=== PATIENT | male | born 1950 | race African-American/Black ===

== ENCOUNTER 2020-04-25 22:57 | Inpatient (IN) | payer MEDICARE, MEDICAID ==
[~2020-04-25] VITALS: Ht 175.3 cm; Wt 82.1 kg
[~2020-04-25 22:57] MED LIST: ILOP2TAB2 PO
[2020-04-26 00:08] LABS: CHLORIDE 106 mEq/L (98-107)
[2020-04-26 00:13] LABS: BASOPHILS % 0.8 % (0.0-2.0); EOSINOPHILS % 3.4 % (0.0-5.0); HEMATOCRIT. 26.4 % (42.0-52.0); LYMPHOCYTES % 28.6 % (20.0-50.0); MEAN CORPUSCULAR HEMOGLOBIN 29.8 pg (28.0-32.0); MEAN CORPUSCULAR VOLUME 87.2 fL (80.0-94.0); MEAN PLATELET VOLUME 8.6 fl (7.4-10.4); MONOCYTES % 11.8 % (2.0-8.0); NEUTROPHILS % 55.4 % (40.0-76.0); PLATELET 366 x1000/uL (130-400); RED BLOOD CELL COUNT 3.03 mill/uL (4.7-6.1); RED CELL DISTRIBUTION WIDTH 14.5 % (11.6-14.6)
[2020-04-26 00:32] LABS: CLARITY URINE CLEAR (CLEAR); COLOR URINE YELLOW (YELLOW); KETONES URINE NEGATIVE (NEGATIVE); LEUKOCYTE ESTERASE URINE TRACE (NEGATIVE); NITRITE URINE NEGATIVE (NEGATIVE); OCCULT BLOOD URINE NEGATIVE (NEGATIVE); PH URINE 6.5 (4.5-8.0); PROTEIN URINE 1+ (NEGATIVE); SPECIFIC GRAVITY URINE 1.016 (1.005-1.030)
[2020-04-26] MEDS ORDERED: POTASSIUM CHLORIDE 20MEQ TABLET SR PO ONE (02:00)
[2020-04-26] MEDS ORDERED: ASPIRIN 325MG TABLET PO ONE (02:00)
[2020-04-26] MEDS ORDERED: ONDANSETRON HCL 4MG/2ML INJ IV PRN (08:15)
[2020-04-26] MEDS ORDERED: ACETAMINOPHEN 325MG TABLET PO PRN (08:15)
[2020-04-26 08:45] VITALS: BP 131/80
[2020-04-26 09:00] VITALS: BP 131/80
[2020-04-26] MEDS: ASPIRIN 81MG TABLET PO SCH (10:02)
[2020-04-26] MEDS: ENOXAPARIN 40MG/0.4ML SYR SUBCUT SCH (10:02)
[2020-04-26 12:00] VITALS: BP 124/63
[2020-04-26 12:58] LABS: TOTAL IRON BINDING CAPACITY 182 ug/dL (250-450)
[2020-04-26] MEDS ORDERED: PNEUMOCOCCAL 23-VAL P-SAC VAC 0.5 ML IM ONE (14:15)
[2020-04-26] MEDS ORDERED: INFLUENZA VACCINE 05/PF 0.5 ML VIAL IM ONE (14:30)
[2020-04-26 16:00] VITALS: BP 144/76
[2020-04-26 18:43] LABS: VITAMIN B12 SERUM 623 pg/mL (211-911)
[2020-04-26] MEDS ORDERED: HYDROCODONE/ACETAMINOPHEN 10/325MG TABLET PO PRN (18:45)
[2020-04-26] MEDS: HYDROCODONE/ACETAMINOPHEN 5/325MG TABLET PO PRN (18:46)
[2020-04-26 20:00] VITALS: BP 128/75
[2020-04-27] VITALS: BP_SYST 140; BP_SYST 142; BP_DIAS 79; BP_DIAS 82
[2020-04-27 04:00] VITALS: BP 147/82
[2020-04-27 06:54] LABS: CHLORIDE 107 mEq/L (98-107)
[2020-04-27 06:56] LABS: BASOPHILS % 0.8 % (0.0-2.0); EOSINOPHILS % 4.2 % (0.0-5.0); HEMATOCRIT. 26.8 % (42.0-52.0); HEMOGLOBIN. 9.3 g/dL (14.0-18.0); LYMPHOCYTES % 27.7 % (20.0-50.0); MEAN CORPUSCULAR HEMOGLOBIN 30.4 pg (28.0-32.0); MEAN CORPUSCULAR VOLUME 87.3 fL (80.0-94.0); MEAN PLATELET VOLUME 8.6 fl (7.4-10.4); NEUTROPHILS % 59.3 % (40.0-76.0); PLATELET 379 x1000/uL (130-400); RED BLOOD CELL COUNT 3.07 mill/uL (4.7-6.1); RED CELL DISTRIBUTION WIDTH 14.6 % (11.6-14.6)
[2020-04-27 08:00] VITALS: BP 152/87
[2020-04-27] MEDS ORDERED: POTASSIUM CHLORIDE 20MEQ TABLET SR PO SCH (08:15)
[2020-04-27] MEDS: ENOXAPARIN 40MG/0.4ML SYR SUBCUT SCH (08:29)
[2020-04-27] MEDS: ASPIRIN 81MG TABLET PO SCH (08:29)
[2020-04-27 12:00] VITALS: BP 146/70
[2020-04-27 16:00] VITALS: BP 153/74
[2020-04-27] MEDS: HYDROCODONE/ACETAMINOPHEN 5/325MG TABLET PO PRN (18:19)
[2020-04-27 20:00] VITALS: BP 145/75
[2020-04-28] VITALS: BP_SYST 146; BP_SYST 152; BP_SYST 157; BP_DIAS 101; BP_DIAS 73; BP_DIAS 89
[2020-04-28 04:00] VITALS: BP 163/79
[2020-04-28 08:00] VITALS: BP 161/98
[2020-04-28] MEDS: ENOXAPARIN 40MG/0.4ML SYR SUBCUT SCH (08:57)
[2020-04-28] MEDS: ASPIRIN 81MG TABLET PO SCH (08:57)
[2020-04-28] MEDS ORDERED: CLONIDINE 0.1MG TABLET PO PRN (09:00)
[2020-04-28 12:00] VITALS: BP 129/68
[2020-04-28] MEDS: RISPERIDONE 0.5MG TABLET PO SCH ×2 (12:19→16:50)
[2020-04-28 16:00] VITALS: BP 126/66
[2020-04-28 20:00] VITALS: BP 146/76
[2020-04-29] VITALS: BP 146/78
[2020-04-29 04:00] VITALS: BP 156/80
[2020-04-29 08:00] VITALS: BP 143/69
[2020-04-29] MEDS: RISPERIDONE 0.5MG TABLET PO SCH ×2 (09:32→17:25)
[2020-04-29] MEDS: ASPIRIN 81MG TABLET PO SCH (09:32)
[2020-04-29] MEDS: ENOXAPARIN 40MG/0.4ML SYR SUBCUT SCH (09:34)
[2020-04-29 12:00] VITALS: BP 153/76
[2020-04-29 16:00] VITALS: BP 148/80
[2020-04-29 20:00] VITALS: BP 138/75
[2020-04-30] VITALS: BP 155/79
[2020-04-30 04:00] VITALS: BP 152/68
[2020-04-30 08:00] VITALS: BP 160/90
[2020-04-30] MEDS: ASPIRIN 81MG TABLET PO SCH (09:14)
[2020-04-30] MEDS: RISPERIDONE 0.5MG TABLET PO SCH ×2 (09:14→17:05)
[2020-04-30] MEDS: ENOXAPARIN 40MG/0.4ML SYR SUBCUT SCH (09:16)
[2020-04-30 11:31] LABS: BASOPHILS % 0.7 % (0.0-2.0); EOSINOPHILS % 1.9 % (0.0-5.0); HEMATOCRIT. 28.7 % (42.0-52.0); HEMOGLOBIN. 9.8 g/dL (14.0-18.0); LYMPHOCYTES % 17.6 % (20.0-50.0); MEAN CORPUSCULAR HEMOGLOBIN 30.2 pg (28.0-32.0); MEAN CORPUSCULAR VOLUME 88.4 fL (80.0-94.0); MEAN PLATELET VOLUME 8.4 fl (7.4-10.4); MONOCYTES % 7.2 % (2.0-8.0); NEUTROPHILS % 72.6 % (40.0-76.0); PLATELET 455 x1000/uL (130-400); RED BLOOD CELL COUNT 3.24 mill/uL (4.7-6.1)
[2020-04-30 11:37] LABS: CHLORIDE 107 mEq/L (98-107)
[2020-04-30 12:00] VITALS: BP 156/95
[2020-04-30 12:05] LABS: PHOSPHORUS 2.8 mg/dL (2.5-4.9)
[2020-04-30 16:00] VITALS: BP 143/70
[2020-04-30 21:07] VITALS: BP 140/71
[2020-05-01 00:15] VITALS: BP 146/77
[2020-05-01] MEDS: HYDROCODONE/ACETAMINOPHEN 5/325MG TABLET PO PRN (03:52)
[2020-05-01 04:57] VITALS: BP 138/68
[2020-05-01 06:14] LABS: BASOPHILS % 0.3 % (0.0-2.0); EOSINOPHILS % 3.8 % (0.0-5.0); HEMATOCRIT. 29.9 % (42.0-52.0); HEMOGLOBIN. 10.1 g/dL (14.0-18.0); LYMPHOCYTES % 27.3 % (20.0-50.0); MEAN CORPUSCULAR HEMOGLOBIN 29.7 pg (28.0-32.0); MEAN CORPUSCULAR VOLUME 87.9 fL (80.0-94.0); MEAN PLATELET VOLUME 8.2 fl (7.4-10.4); MONOCYTES % 9.3 % (2.0-8.0); NEUTROPHILS % 59.3 % (40.0-76.0); PLATELET 486 x1000/uL (130-400); RED CELL DISTRIBUTION WIDTH 14.8 % (11.6-14.6)
[2020-05-01 06:19] LABS: CHLORIDE 106 mEq/L (98-107)
[2020-05-01 08:00] VITALS: BP 145/89
[2020-05-01] MEDS: ENOXAPARIN 40MG/0.4ML SYR SUBCUT SCH (09:43)
[2020-05-01] MEDS: ASPIRIN 81MG TABLET PO SCH (09:43)
[2020-05-01] MEDS: RISPERIDONE 0.5MG TABLET PO SCH ×2 (09:43→17:17)
[2020-05-01 12:00] VITALS: BP 156/95
[2020-05-01 16:00] VITALS: BP 160/92
[2020-05-01 20:00] VITALS: BP 114/72
[2020-05-01] MEDS: METOPROLOL TARTRATE 25MG TABLET PO SCH (21:10)
[2020-05-02] VITALS: BP 134/78
[2020-05-02 04:00] VITALS: BP 118/82
[2020-05-02 07:06] LABS: CHLORIDE 107 mEq/L (98-107)
[2020-05-02 07:11] LABS: BASOPHILS % 0.6 % (0.0-2.0); EOSINOPHILS % 3.6 % (0.0-5.0); HEMATOCRIT. 30.6 % (42.0-52.0); HEMOGLOBIN. 10.2 g/dL (14.0-18.0); LYMPHOCYTES % 31.9 % (20.0-50.0); MEAN CORPUSCULAR HEMOGLOBIN 29.3 pg (28.0-32.0); MEAN CORPUSCULAR VOLUME 87.5 fL (80.0-94.0); MEAN PLATELET VOLUME 8.1 fl (7.4-10.4); MONOCYTES % 12.8 % (2.0-8.0); NEUTROPHILS % 51.1 % (40.0-76.0); PLATELET 535 x1000/uL (130-400); RED BLOOD CELL COUNT 3.49 mill/uL (4.7-6.1); RED CELL DISTRIBUTION WIDTH 14.9 % (11.6-14.6)
[2020-05-02 08:00] VITALS: BP 151/82
[2020-05-02] MEDS: ASPIRIN 81MG TABLET PO SCH (09:12)
[2020-05-02] MEDS: RISPERIDONE 0.5MG TABLET PO SCH ×2 (09:12→17:01)
[2020-05-02] MEDS: METOPROLOL TARTRATE 25MG TABLET PO SCH ×2 (09:12→21:10)
[2020-05-02] MEDS: ENOXAPARIN 40MG/0.4ML SYR SUBCUT SCH (09:13)
[2020-05-02 12:00] VITALS: BP 141/81
[2020-05-02 16:00] VITALS: BP_SYST 71; BP_SYST 93; BP_DIAS 39; BP_DIAS 54
[2020-05-02 20:00] VITALS: BP 122/66
[2020-05-03] VITALS: BP 133/67
[2020-05-03 04:00] VITALS: BP 155/72
[2020-05-03 06:56] LABS: BASOPHILS % 0.9 % (0.0-2.0); EOSINOPHILS % 3.5 % (0.0-5.0); HEMATOCRIT. 30.4 % (42.0-52.0); HEMOGLOBIN. 10.2 g/dL (14.0-18.0); LYMPHOCYTES % 34.1 % (20.0-50.0); MEAN CORPUSCULAR VOLUME 86.9 fL (80.0-94.0); MEAN PLATELET VOLUME 7.9 fl (7.4-10.4); MONOCYTES % 12.2 % (2.0-8.0); NEUTROPHILS % 49.3 % (40.0-76.0); PLATELET 521 x1000/uL (130-400); RED CELL DISTRIBUTION WIDTH 14.8 % (11.6-14.6)
[2020-05-03 07:03] LABS: CHLORIDE 110 mEq/L (98-107)
[2020-05-03 07:58] VITALS: BP 121/61
[2020-05-03] MEDS: ENOXAPARIN 40MG/0.4ML SYR SUBCUT SCH (08:52)
[2020-05-03] MEDS: ASPIRIN 81MG TABLET PO SCH (08:52)
[2020-05-03] MEDS: METOPROLOL TARTRATE 25MG TABLET PO SCH (08:52)
[2020-05-03] MEDS: RISPERIDONE 0.5MG TABLET PO SCH (08:52)
[2020-05-03 12:00] VITALS: BP 131/68
[2020-05-03 15:27] VITALS: BP 101/60
[2020-05-03 16:00] VITALS: BP 130/75
== END 2020-05-03 17:25 | DRG 425 ==
LOC: ER 22:57 → 5WST 04-26 04:27 → EDBEDREQTM 04-26 04:41 → EDBEDREQ 04-26 04:41 → ENRESERV 04-26 08:03
PROVIDERS: ADMIT Internal Medicine; ATTEND Internal Medicine
DX: E87.6 Hypokalemia (principal); G93.40 Encephalopathy, unspecified; S42.202A Unspecified fracture of upper end of left humerus, initial encounter for closed fracture; G54.0 Brachial plexus disorders; I10 Essential (primary) hypertension; E43 Unspecified severe protein-calorie malnutrition; D64.9 Anemia, unspecified; E87.5 Hyperkalemia; M48.02 Spinal stenosis, cervical region; R00.0 Tachycardia, unspecified; F03.90 Unspecified dementia, unspecified severity, without behavioral disturbance, psychotic disturbance, mood disturbance, and anxiety; I69.354 Hemiplegia and hemiparesis following cerebral infarction affecting left non-dominant side; Z68.26 Body mass index [BMI] 26.0-26.9, adult; W18.39XA Other fall on same level, initial encounter; Y93.89 Activity, other specified; Y92.89 Other specified places as the place of occurrence of the external cause; Y99.8 Other external cause status
CPT/HCPCS: 36415; 70551; 71045; 72141; 73030; 80048; 80053; 81003; 82607; 82728; 83036; 83540; 83550; 83735; 83880; 84100; 84132; 84443; 84484; 85025; 90686; 90732; 93005; 93306; 95816; 97116; 97162; 97530; 99291; A4565; J1650; A4315

== ENCOUNTER 2020-06-01 14:10 | Inpatient (IN) | payer MEDICARE, MEDICAID ==
[~2020-06-01] VITALS: Ht 175.3 cm; Wt 81.9 kg
[2020-06-01 15:56] LABS: BASOPHILS % 0.7 % (0.0-2.0); EOSINOPHILS % 1.2 % (0.0-5.0); HEMATOCRIT. 38.1 % (42.0-52.0); HEMOGLOBIN. 12.7 g/dL (14.0-18.0); LYMPHOCYTES % 16.7 % (20.0-50.0); MEAN CORPUSCULAR HEMOGLOBIN 28.6 pg (28.0-32.0); MEAN CORPUSCULAR VOLUME 85.9 fL (80.0-94.0); MEAN PLATELET VOLUME 8.6 fl (7.4-10.4); MONOCYTES % 7.8 % (2.0-8.0); NEUTROPHILS % 73.6 % (40.0-76.0); PLATELET 266 x1000/uL (130-400); RED BLOOD CELL COUNT 4.43 mill/uL (4.7-6.1)
[2020-06-01 16:03] LABS: CHLORIDE 109 mEq/L (98-107)
[2020-06-01 16:06] LABS: PROTHROMBIN TIME 10.9 sec (9.6-11.0)
[2020-06-01 16:07] LABS: ETHANOL BLOOD < 10 mg/dL
[2020-06-01] MEDS: ONDANSETRON HCL 4MG/2ML INJ IV PRN (21:07)
[2020-06-01] MEDS: MORPHINE SULFATE 2 MG/ML CPJ (NOT FOR IM USE) IV PRN (21:07)
[2020-06-02] MEDS: MORPHINE SULFATE 2 MG/ML CPJ (NOT FOR IM USE) IV PRN ×2 (02:07→09:20)
[2020-06-02 05:28] LABS: CLARITY URINE CLEAR (CLEAR); COLOR URINE YELLOW (YELLOW); KETONES URINE NEGATIVE (NEGATIVE); LEUKOCYTE ESTERASE URINE NEGATIVE (NEGATIVE); NITRITE URINE NEGATIVE (NEGATIVE); OCCULT BLOOD URINE NEGATIVE (NEGATIVE); PROTEIN URINE NEGATIVE (NEGATIVE); SPECIFIC GRAVITY URINE 1.017 (1.005-1.030); UROBILINOGEN URINE 0.2 E.U./dL (0.2-1.0)
[2020-06-02 05:40] LABS: *AMPHETAMINES SCREEN URINE NEGATIVE (NEGATIVE); *BARBITURATES SCREEN URINE NEGATIVE (NEGATIVE); *BENZODIAZEPINES SCREEN URINE NEGATIVE (NEGATIVE); *COCAINE SCREEN URINE NEGATIVE (NEGATIVE)
[2020-06-02 05:41] LABS: CANNABINOID URINE SCREEN NEGATIVE (NEGATIVE); METHADONE URINE SCREEN NEGATIVE (NEGATIVE); OPIATES URINE SCREEN PRESUMTIVE POSITIVE (NEGATIVE); PHENCYCLIDINE URINE SCREEN NEGATIVE (NEGATIVE)
[2020-06-02] MEDS ORDERED: DOCUSATE SODIUM 100MG CAPSULE PO PRN (07:30)
[2020-06-02] MEDS ORDERED: ACETAMINOPHEN 325MG TABLET PO PRN (07:30)
[2020-06-02] MEDS ORDERED: IPRATROPIUM/ALBUTEROL 0.5-3(2.5)MG/3ML NEB HHN PRN (07:30)
[2020-06-02] MEDS ORDERED: MAGNESIUM/ALUMINUM HYDROXIDE/SIMETHICONE 30ML UDC PO PRN (07:30)
[2020-06-02] MEDS: ENOXAPARIN 40MG/0.4ML SYR SUBCUT SCH (08:00)
[2020-06-02] MEDS: ONDANSETRON HCL 4MG/2ML INJ IV PRN (09:19)
[2020-06-02] MEDS: PANTOPRAZOLE SODIUM 40 MG/VIAL IV SCH (09:19)
[2020-06-03] VITALS (7 sets, daily range): BP systolic 105–158; BP diastolic 64–96
[2020-06-03] MEDS: CLONIDINE 0.1MG TABLET PO PRN ×2 (04:13→11:47)
[2020-06-03 07:15] LABS: BASOPHILS % 0.6 % (0.0-2.0); EOSINOPHILS % 2.6 % (0.0-5.0); HEMATOCRIT. 31.9 % (42.0-52.0); MEAN CORPUSCULAR HEMOGLOBIN 29.3 pg (28.0-32.0); MEAN CORPUSCULAR VOLUME 84.5 fL (80.0-94.0); MEAN PLATELET VOLUME 8.9 fl (7.4-10.4); MONOCYTES % 11.8 % (2.0-8.0); PLATELET 240 x1000/uL (130-400); RED BLOOD CELL COUNT 3.77 mill/uL (4.7-6.1); RED CELL DISTRIBUTION WIDTH 15.3 % (11.6-14.6)
[2020-06-03 07:42] LABS: CHLORIDE 111 mEq/L (98-107)
[2020-06-03 07:47] LABS: LDL CHOLESTEROL 91 mg/dL (5-100)
[2020-06-03 07:49] LABS: HDL CHOLESTEROL 50 mg/dL (40-59)
[2020-06-03 07:51] LABS: CREATINE KINASE MB FRACTION 1.5 ng/mL (0.5-3.6)
[2020-06-03 07:53] LABS: T4 FREE 1.14 ng/dL (0.76-1.46)
[2020-06-03] MEDS: ENOXAPARIN 40MG/0.4ML SYR SUBCUT SCH (09:03)
[2020-06-03] MEDS: PANTOPRAZOLE SODIUM 40 MG/VIAL IV SCH (09:03)
[2020-06-03] MEDS ORDERED: POTASSIUM CHLORIDE 20MEQ TABLET SR PO NR (14:45)
[2020-06-03] MEDS: METOPROLOL TARTRATE 50MG TABLET PO SCH (21:04)
[2020-06-04] VITALS: BP 129/81
[2020-06-04 04:00] VITALS: BP 159/82
[2020-06-04 07:35] LABS: BASOPHILS % 0.4 % (0.0-2.0); EOSINOPHILS % 5.5 % (0.0-5.0); HEMATOCRIT. 32.4 % (42.0-52.0); MEAN CORPUSCULAR VOLUME 85.3 fL (80.0-94.0); MEAN PLATELET VOLUME 9.2 fl (7.4-10.4); MONOCYTES % 11.9 % (2.0-8.0); NEUTROPHILS % 45.2 % (40.0-76.0); PLATELET 243 x1000/uL (130-400); RED CELL DISTRIBUTION WIDTH 15.1 % (11.6-14.6)
[2020-06-04 07:51] LABS: CHLORIDE 108 mEq/L (98-107)
[2020-06-04 08:00] VITALS: BP 153/83
[2020-06-04] MEDS: PANTOPRAZOLE SODIUM 40 MG/VIAL IV SCH (08:35)
[2020-06-04] MEDS: ENOXAPARIN 40MG/0.4ML SYR SUBCUT SCH (08:36)
[2020-06-04] MEDS: METOPROLOL TARTRATE 50MG TABLET PO SCH (08:36)
[2020-06-04 12:00] VITALS: BP 149/77
[2020-06-04 13:03] VITALS: BP 149/77
[2020-06-04 15:15] VITALS: BP 119/83
[2020-06-04] MEDS ORDERED: METOPROLOL TARTRATE 100MG TABLET PO SCH (21:00)
== END 2020-06-04 13:15 | disposition home or self-care (01) | DRG 48 ==
LOC: ER 14:32 → MICUSO 17:41 → 6WST 06-02 23:55
PROVIDERS: ADMIT Internal Medicine; ATTEND Internal Medicine
DX: G90.8 Other disorders of autonomic nervous system (principal); I42.1 Obstructive hypertrophic cardiomyopathy; S42.202A Unspecified fracture of upper end of left humerus, initial encounter for closed fracture; J98.11 Atelectasis; I10 Essential (primary) hypertension; M48.02 Spinal stenosis, cervical region; E87.6 Hypokalemia; I25.10 Atherosclerotic heart disease of native coronary artery without angina pectoris; R94.6 Abnormal results of thyroid function studies; W18.39XA Other fall on same level, initial encounter; F17.200 Nicotine dependence, unspecified, uncomplicated; J44.9 Chronic obstructive pulmonary disease, unspecified; Z86.73 Personal history of transient ischemic attack (TIA), and cerebral infarction without residual deficits; Q24.4 Congenital subaortic stenosis; Z59.0 Homelessness; Y93.89 Activity, other specified; Y92.89 Other specified places as the place of occurrence of the external cause; Y99.8 Other external cause status; S52.502A Unspecified fracture of the lower end of left radius, initial encounter for closed fracture; S43.005A Unspecified dislocation of left shoulder joint, initial encounter
CPT/HCPCS: 36415; 70551; 71045; 73060; 73090; 73130; 80048; 80061; 80076; 80305; 80307; 80320; 80329; 81003; 82140; 82553; 83735; 83930; 84100; 84439; 84443; 84481; 84484; 85025; 86592; 92610; 93005; 93306; 93880; 97162; 97166; 99285; C1893; C9113; J1650; J2270; J2405; G0480

== ENCOUNTER 2023-05-08 15:15 | Emergency (ER) | payer MEDICARE, MEDICAID ==
[~2023-05-08] VITALS: Ht 175.3 cm; Wt 64.0 kg
[2023-05-08 15:24] VITALS: TEMP 98.4; O2SAT 100
[2023-05-08 17:13] LABS: INR 1.1; PROTHROMBIN TIME 11.8 sec (9.6-11.0)
[2023-05-08 17:18] LABS: BASOPHILS % 0.4 % (0.0-2.0); EOSINOPHILS % 0.5 % (0.0-5.0); HEMATOCRIT. 27.1 % (42.0-52.0); HEMOGLOBIN. 9.6 g/dL (14.0-18.0); LYMPHOCYTES % 17.6 % (20.0-50.0); MEAN CORPUSCULAR HEMOGLOBIN 30.8 pg (28.0-32.0); MEAN CORPUSCULAR HGB CONC 35.2 g/dL (31.0-37.0); MEAN CORPUSCULAR VOLUME 87.3 fL (80.0-94.0); MONOCYTES % 7.6 % (2.0-8.0); NEUTROPHILS % 73.9 % (40.0-76.0); RED CELL DISTRIBUTION WIDTH 14.3 % (11.6-14.6); WHITE BLOOD COUNT 7.6 x1000/uL (4.5-11.0)
[2023-05-08 17:37] LABS: ALANINE AMINOTRANSFERASE 8 IU/L (10-49); ALBUMIN 4.1 g/dL (3.2-4.8); ASPARTATE AMINOTRANSFERASE 19 IU/L (<34); BILIRUBIN TOTAL 0.6 mg/dL (0.1-1.0); CALCIUM 9.4 mg/dL (8.7-10.4); CARBON DIOXIDE 27 mEq/L (21-32); CHLORIDE 104 mEq/L (98-107); CREATININE 1.2 mg/dL (0.6-1.3); GLUCOSE 127 mg/dL (70-105); POTASSIUM 4.2 mEq/L (3.5-5.1); PROTEIN TOTAL 7.2 g/dL (6.0-8.3); SODIUM 138 mEq/L (136-145); UREA NITROGEN BLOOD 10 mg/dL (9-23)
[2023-05-08 17:45] LABS: TROPONIN I HIGH SENSITIVITY 75 ng/L (3.0-53)
[2023-05-08 17:50] LABS: DIFFERENTIAL COMMENT 1
[2023-05-08 19:09] LABS: PLATELET 354 x1000/uL (130-400)
[2023-05-08 19:12] VITALS: BP 130/76; PULSE 67; RESP 12
== END 2023-05-08 19:26 | disposition left against medical advice (07) ==
LOC: ER 15:15
DX: R55 Syncope and collapse (principal); I21.4 Non-ST elevation (NSTEMI) myocardial infarction; I10 Essential (primary) hypertension
CPT/HCPCS: 36415; 71045; 80053; 83880; 84484; 85025; 93005; 99291